=== PATIENT | female | born 1980 | race Caucasian/White ===

== ENCOUNTER → 2016-05-29 | Outpatient (CLI) | payer BC | END | disposition home or self-care (01) | LOC: GMAJ 17:05 | PROVIDERS: ATTEND Family Medicine | DX: M25.50 Pain in unspecified joint (principal) ==

== ENCOUNTER → 2018-01-15 | Outpatient (CLI) | payer BC | LOC: GMAHI 10:38 | PROVIDERS: ATTEND Nurse Practitioner Family | DX: D51.3 Other dietary vitamin B12 deficiency anemia (principal); R94.5 Abnormal results of liver function studies; E78.2 Mixed hyperlipidemia ==

== ENCOUNTER → 2018-05-28 | Outpatient (CLI) | payer BC ==
--- NOTE | 2018-05-28 16:25 | US ---
EXAM DESCRIPTION: Abdomen,Complete: Ultrasound. CLINICAL HISTORY: POLYP OF GALLBLADDER COMPARISON: Ultrasound gallbladder 05/24/2009. TECHNIQUE: Transabdominal scannin-dimensional and Doppler modes. FINDINGS: Gallbladder: Polyp on the posterior wall of the gallbladder measures 9 x 7 mm with no acoustic shadowing. Wall thickness 1.9 mm is normal. No stones or sludge. No fluid around the wall. Nontender during transducer pressure. Common bile duct: 3.2 mm is within normal limits. Liver: Mildly increased echogenicity which is heterogeneous. Long axis of the right lobe 14.9 cm. Normal intrahepatic ducts. Normal direction of flow in the hepatic and portal veins. Smooth capsule with no fluid surrounding the liver. Pancreas: Pancreas not well seen. Duct not seen.. Abdominal aorta: Normal caliber from the proximal segment to the distal bifurcation. IVC: visualized; normal caliber. Spleen normal echogenicity; long axis measurement is 10.0 cm. Right kidney: 10.4 cm long axis. Normal cortical thickness and echogenicity. No hydronephrosis, no perirenal fluid, and normal vascularity. Left kidney: 10.0 cm long axis. Normal cortical thickness and echogenicity. No hydronephrosis or perinephric edema. Normal vascularity. IMPRESSION: 1. Polyp on the posterior wall of the gallbladder is stable since the prior study in 2009. No wall thickening. No stones or sludge. No surrounding fluid. Nontender. Normal caliber of the ducts. 2. Minimal steatosis of the liver with normal size. Normal vascularity and intrahepatic ducts. Smooth capsule and no ascites. Pancreas not well seen. 3. Bilateral kidneys are unremarkable. Normal caliber of the IVC and abdominal aorta. Spleen is negative. Electronically signed by: Jim Rios MD 05/28/2018 4:22 PM [facility]
== END ==
LOC: US 08:45
PROVIDERS: ATTEND Family Medicine
DX: K82.4 Cholesterolosis of gallbladder (principal); K76.0 Fatty (change of) liver, not elsewhere classified